=== PATIENT | male | born 1945 | race Caucasian/White ===

== ENCOUNTER → 2020-01-02 | Outpatient (CLI) | payer MEDICARE, OTHER ==
[2020-01-02 09:25] LABS: HCT 45.6 % (39.0-53.0); HGB 15.1 gm/dL (13.0-17.5); MCH 32.3 pg (25.0-35.0); MCHC 33.2 g/dL (31.0-37.0); MCV 97.4 fL (80.0-100.0); Platelet Count 250 k/uL (150-450); RBC 4.67 m/uL (4.30-5.90); RDW 12.2 % (11.5-15.5); WBC 5.8 k/uL (3.8-10.6)
[2020-01-02 09:43] LABS: African American GFR (CKD) >90 (>60 ml/min/1.73 sqM); Anion Gap 9 mmol/L; Blood Urea Nitrogen 16 mg/dL (9-20); Carbon Dioxide 23 mmol/L (22-30); Chloride 108 mmol/L (98-107); Glucose 99 mg/dL (74-99); Non-African American GFR(CKD) 88 (>60 ml/min/1.73 sqM); Potassium 5.1 mmol/L (3.5-5.1); Sodium 140 mmol/L (137-145)
== END | disposition home or self-care (01) ==
LOC: LABWHC1 08:23
PROVIDERS: ATTEND Internal Medicine Interventional Cardiology
DX: Z01.818 Encounter for other preprocedural examination (principal); E78.2 Mixed hyperlipidemia; R94.39 Abnormal result of other cardiovascular function study
CPT/HCPCS: 36415; 80051; 82565; 82947; 84520; 85027

== ENCOUNTER → 2020-01-22 | Outpatient (CLI) | payer MEDICARE, OTHER | END | disposition home or self-care (01) | LOC: LABWHC1 08:00 | PROVIDERS: ATTEND Internal Medicine Interventional Cardiology | DX: U07.1 COVID-19 (principal) | CPT/HCPCS: 87635 ==

== ENCOUNTER → 2020-01-24 | Day surgery (SDC) | payer MEDICARE, OTHER ==
[2020-01-20 15:45] VITALS: BMI 28.0
--- NOTE | 2020-01-23 20:32 | HP ---
HISTORY AND PHYSICAL Mr. Coleman is a 74-year-old gentleman with a known history of CAD. In 1992 he had an acute inferior NV, had tPA and then angioplasty of circumflex. Subsequently in 1997 the circumflex was subtotally occluded and he also had diagonal disease. Since then he has been on medical therapy, doing fairly well. A recent stress test revealed that the ejection fraction is about 45% with inferior wall hypokinesia, but there is a significant moderate-sized fixed defect with a partial reversibility, and this reversible area is larger and new and cannot exclude ischemia in the RCA distribution as well. 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 There was no significant disease in this vessel and also in the LAD. Diagonal had some disease in 1997. Because of these findings on the stress test and previous NV risk factors, I recommended coronary angiography. I explained to the patient the rationale, risks, benefits and options. He understands all details and wishes to proceed with the procedure. PAST MEDICAL HISTORY: 1. CAD with prior inferior NV and circumflex PTCA in 1992. No stent. Subsequent vessel occlusion. 2. Hypertension. 3. Hyperlipidemia. 4. History of prostate carcinoma in the past, for which he had radiation therapy. MEDICATIONS: Medications at home include aspirin 81 mg daily, atorvastatin 40 mg daily, diltiazem SR 180 mg daily, Imdur 60 mg daily. Patient is intolerant of beta blockers and he has had significant side effects, including erectile dysfunction and extreme fatigue, and therefore he is not on beta blockers. ALLERGIES: NONE. REVIEW OF SYSTEMS: Unremarkable other than above-mentioned facts. The patient has exertional shortness of breath, occasional chest tightness. No hematemesis, melena, genitourinary symptoms, fever with chills or cough with expectoration. PHYSICAL EXAMINATION: On examination, blood pressure was 140/70. Pulse rate was about 68. HEENT: Unremarkable. Fundus was not examined by me. Neck is supple. No JVD. I do not hear a carotid bruit. There is no thyromegaly. Heart exam reveals S1, S2 heard normally. No rub, murmur or gallop. Lungs are clear. Abdomen is soft, nontender. Lower extremities reveal normal pulses. No edema. Central nervous system is normal. IMPRESSION: 1. Probable progression of coronary artery disease in a patient with an abnormal stress test. 2. Hypertension. 3. Hyperlipidemia. 4. History of prior inferior myocardial infarction and percutaneous transluminal coronary angioplasty of circumflex in the past. RECOMMENDATIONS: I am recommending coronary angiography and, if indicated, PCI. The patient understands the rationale, risks, benefits, options and wishes to proceed. MMODL / IJN: [id number] /
[~2020-01-24] MED LIST: ALPRAZolam 0.25 MG TAB PO PRN; ALPRAZolam 0.5 MG TAB PO PRN; ASPIRIN 325 MG TAB PO STA; HEPARIN SODIUM 1,000 UN/ML (10ML VL) IV ONE; HEPARIN SODIUM 1,000 UN/ML (10ML VL) ONE; IOPAMIDOL-370 100ML BTL INJ ONE; ISOSORBIDE MONONITRATE ER 60 MG TAB.ER.24H PO STA; LIDOCAINE 1% INJ 10MG/ML (20 ML MDV) ONE; LIDOCAINE 1% INJ 10MG/ML (20 ML MDV) SQ ONE; MIDAZOLAM 2 MG/2 ML VIAL IVP ONE; NITROGLYCERIN SL TABS 0.4 MG TAB SUBLINGUAL PRN; SODIUM CHLORIDE 0.9% 1,000 ML IV SCH; SODIUM CHLORIDE 0.9% 1,000 ML in EMPTY BAG 1 BAG IV ONE; VERAPAMIL 2.5 MG/ML 2 ML AMP ONE; VERAPAMIL SYRINGE (5 MG/10 ML) INTRAARTER ONE; fentaNYL (PF) 50 MCG/ML 2 ML AMP IV ONE; fentaNYL (PF) 50 MCG/ML 2 ML AMP ONE
[2020-01-24 09:47] VITALS: RESP 18; TEMP 98.1
--- NOTE | 2020-01-24 12:32 | CC ---
CARDIAC CATHETERIZATION REPORT DATE OF SERVICE: 01/24/2020 PROCEDURE: Left heart catheterization and coronary angiography. PERFORMED BY: Dr. Kellie Tony. Moderate conscious sedation time was 45 minutes. Patient was administered Versed. Oxygen saturation, hemodynamics and EKG were monitored closely. CLINICAL INFORMATION: Mr. Coleman is a 74-year-old gentleman who suffered from an acute inferior PA in 1992, underwent angioplasty of circumflex. About 5 years later the circumflex marginal was subtotally occluded, was treated medically. Because of a significant abnormality on the stress test in the inferolateral wall, he was advised coronary angiography after due discussion. He has an ectopic right that come from a posterior location. Patient wished right radial cath. PROCEDURE NOTE: Under local anesthesia and strict aseptic precautions, a 6-Croatian introducer was placed in the right radial artery. I used a JR4 catheter. With this I was able to get LV pressures. I could not get a selective injection of the right coronary artery, which seemed to come from a superior and posterior location there was sort of calcification in the aorta as well. I then performed coronary angiography of the left system. After that, I went back with multiple catheters including a multipurpose B1 catheter, AL1 catheter, an AR2 catheter and a Lina catheter. I only had sub selective injection of the RCA, which seems to be patent and large dominant vessel, but the proximal portion seems to have calcification. LV gram was not performed. He will probably benefit from a CT angio of the coronaries and also ascending aorta where there is lot of calcification. 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 The patient tolerated procedure well. The sheath was taken out and TR band applied as per protocol. Saturation in the fingers of the right hand was about 94%. He received 3000 units of heparin intravenously. CARDIAC CATHETER FINDINGS: The left end-diastolic pressure was about 12 to 13 mmHg without any gradient across the aortic valve. CORONARY ANGIOGRAPHY FINDINGS: RIGHT CORONARY ARTERY: A dominant vessel. There is a sub selective injection. Based on this sub selective injection, I cannot make a meaningful determination of the extent of her disease but the vessel is patent and appears to be dominant. There is some calcification in the proximal portion of the vessel. Does not seem to have an any obstruction to flow and the vessel opacifies all the way until the bifurcation. The injections were sub selective. LEFT MAIN CORONARY ARTERY: This is a long vessel, distally. There is about a 25% lesion and bifurcates into LAD and circumflex. The left main itself does not have any significant disease other than the 20% to 25% narrowing in the distal half and also the distal portion of the vessel. LEFT ANTERIOR DESCENDING CORONARY: This vessel at its origin as it comes off, has an aneurysm that is almost 6 mm. This is a saccular aneurysm and just after the aneurysm a diagonal branch comes off which has some mild diffuse disease in it. LAD itself has no other significant disease. Distal LAD in fact provides collaterals to the circumflex. LEFT POSTERIOR CIRCUMFLEX CORONARY: This vessel at its origin has a subtotal lesion and there is a first obtuse marginal branch of circumflex and the first obtuse marginal branch of circumflex which has diffuse disease. Second obtuse marginal is subtotally occluded. Limited flow and distal branches of the circumflex are being filled by the collaterals from LAD. Circumflex occlusion and progression of disease is probably the abnormality noted on the stress test. Left ventriculogram was not performed. FINAL IMPRESSION: This patient has a right dominant system, sub selective injection revealed that RCA is patent. I cannot comment about the severity of disease in this vessel. 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 No other significant disease. Circumflex is subtotally occluded, fills from collaterals from the LAD and this is the area of abnormality that showed up on the stress test. LV pressures are normal and no gradient across the aortic valve. RECOMMENDATIONS: Findings were reviewed with the patient and family. I am recommending a coronary CT angiogram and ascending aortic assessment to rule out any aneurysm. With regard to the coronary aneurysm, I will seek a surgical opinion as well. Findings were reviewed with the patient and family. Will continue medical therapy, refrain from doing strenuous activity. We will see him next week in the office and he will be discharged later today if he remains stable. MMODL / IJN: [id number] /
[2020-01-24 17:10] VITALS: BP 159/74; PULSE 72
--- NOTE | 2020-01-25 10:40 | ECHOF ---
Referral Reason:post cath MEASUREMENTS -------- HEIGHT: 175.3 cm WEIGHT: 89.8 kg BP: 181/77 RVIDd: 3.4 cm (< 3.3) IVSd: 1.3 cm (0.6 - 1.1) LVIDd: 4.2 cm (3.9 - 5.3) LVPWd: 1.2 cm (0.6 - 1.1) IVSs: 1.5 cm LVIDs: 2.8 cm LVPWs: 1.6 cm LA Diam: 3.5 cm (2.7 - 3.8) LAESV Index (A-L): 21.82 ml/m Ao Diam: 3.1 cm (2.0 - 3.7) AV Cusp: 1.9 cm (1.5 - 2.6) MV EXCURSION: 16.721 mm (> 18.000) MV EF SLOPE: 65 mm/s (70 - 150) EPSS: 1.7 cm MV E Dewey: 0.76 m/s MV DecT: 342 ms MV A Dewey: 1.02 m/s MV E/A Ratio: 0.74 RAP: 5.00 mmHg RVSP: 25.63 mmHg FINDINGS -------- Sinus rhythm. This was a technically adequate study. The left ventricular size is normal. There is mild concentric left ventricular hypertrophy. Overa ll left ventricular systolic function is low-normal with, an EF between 50 - 55 %. The right ventricle is mildly enlarged. Normal LA size by volume 22+/-6 ml/m2. The right atrium is normal in size. Interatrial and interventricular septum intact. There is mild aortic valve sclerosis. Trace amount of aortic regurgitation. There is trace to mild mitral regurgitation. Mild tricuspid regurgitation present. Right ventricular systolic pressure is normal at < 35 mmHg. The pulmonic valve was not well visualized. The aortic root size is normal. Normal inferior vena cava with normal inspiratory collapse consistent with estimated right atrial pre ssure of 5 mmHg. There is no pericardial effusion. CONCLUSIONS -------- 1. Sinus rhythm. 2. This was a technically adequate study. 3. The left ventricular size is normal. 4. There is mild concentric left ventricular hypertrophy. 5. Overall left ventricular systolic function is low-normal with, an EF between 50 - 55 %. 6. The right ventricle is mildly enlarged. 7. Normal LA size by volume 22+/-6 ml/m2. 8. The right atrium is normal in size. 9. Interatrial and interventricular septum intact. 10. There is mild aortic valve sclerosis. 11. Trace amount of aortic regurgitation. 12. There is trace to mild mitral regurgitation. 13. Mild tricuspid regurgitation present. 14. Right ventricular systolic pressure is normal at < 35 mmHg. 15. The pulmonic valve was not well visualized. 16. The aortic root size is normal. 17. Normal inferior vena cava with normal inspiratory collapse consistent with estimated right atrial pressure of 5 mmHg. 18. There is no pericardial effusion. 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
== END ==
LOC: CATHCVL 09:06
PROVIDERS: ATTEND Internal Medicine Interventional Cardiology
DX: I25.110 Atherosclerotic heart disease of native coronary artery with unstable angina pectoris (principal); I25.84 Coronary atherosclerosis due to calcified coronary lesion; Z98.61 Coronary angioplasty status; I10 Essential (primary) hypertension; I70.0 Atherosclerosis of aorta; I25.41 Coronary artery aneurysm; R94.39 Abnormal result of other cardiovascular function study; E78.00 Pure hypercholesterolemia, unspecified; E78.5 Hyperlipidemia, unspecified; I25.2 Old myocardial infarction; Z85.46 Personal history of malignant neoplasm of prostate; Z92.3 Personal history of irradiation; Z79.82 Long term (current) use of aspirin; Z79.899 Other long term (current) drug therapy; Z88.8 Allergy status to other drugs, medicaments and biological substances
CPT/HCPCS: 93306; 93458; C1769; C1894; J2250; J2001; J3010; J1644; Q9967

== ENCOUNTER → 2020-03-16 | Outpatient (CLI) | payer MEDICARE, OTHER ==
[2020-03-16 08:41] LABS: African American GFR (CKD) >90 (>60 ml/min/1.73 sqM); Blood Urea Nitrogen 21 mg/dL (9-20); Non-African American GFR(CKD) >90 (>60 ml/min/1.73 sqM)
--- NOTE | 2020-03-16 09:58 | CT ---
EXAMINATION TYPE: CT angio chest DATE OF EXAM: 03/16/2020 COMPARISON: None HISTORY: thoracic aortic aneurysm CT DLP: 727 mGycm CONTRAST: CTA thoracic aorta with 3-D reconstruction is performed and without and with IV Contrast, patient inj ected with 100 mL of Isovue 370. Contrast CTA of the thoracic aorta was performed from the lung apex through the upper abdomen. 3D re construction imaging obtained at a separate workstation. CT Chest: THORACIC AORTA: No evidence for thoracic aortic aneurysm. Mild atheromatous changes seen. There is n o evidence for dissection or periaortic collection. LUNGS: The lungs are clear and free of infiltrate or atelectasis. No pulmonary nodule or mass is det ected. No pleural effusion or CT evidence of interstitial lung disease. MEDIASTINUM: No evidence for mediastinal hematoma. The heart is not enlarged. No evidence for med iastinal mass or adenopathy. HILAR STRUCTURES: No evidence for mass. No hilar adenopathy is appreciated. OTHER: No significant abnormality. IMPRESSION- 1. No evidence for a thoracic aortic aneurysm. 2. Emphysematous changes upper lungs.
== END | disposition home or self-care (01) ==
LOC: RADCTMAIN 08:03
PROVIDERS: ATTEND Internal Medicine Interventional Cardiology
DX: J43.9 Emphysema, unspecified (principal); I71.2 Thoracic aortic aneurysm, without rupture
CPT/HCPCS: 82565; 84520; 71275; 36415; Q9967

== ENCOUNTER → 2020-06-11 | Outpatient (CLI) | payer MEDICARE, OTHER | END | disposition home or self-care (01) | LOC: LABWHC1 08:55 | PROVIDERS: ATTEND Nurse Practitioner Adult Health | DX: Z01.812 Encounter for preprocedural laboratory examination (principal); I25.118 Atherosclerotic heart disease of native coronary artery with other forms of angina pectoris | CPT/HCPCS: U0003; C9803 ==

== ENCOUNTER → 2020-10-12 | Outpatient (CLI) | payer MEDICARE, OTHER | END | disposition home or self-care (01) | LOC: LABWHC1 07:01 | PROVIDERS: ATTEND Internal Medicine Interventional Cardiology | DX: Z01.818 Encounter for other preprocedural examination (principal); I25.82 Chronic total occlusion of coronary artery | CPT/HCPCS: U0003; C9803; U0005 ==